=== PATIENT | male | born 1935 | race Caucasian/White ===

== ENCOUNTER 2017-02-19 12:17 | Emergency (ER) | payer OTHER, MEDICARE ==
[2017-02-19 12:30] VITALS: BP 143/87; PULSE 68; RESP 18; TEMP 97.5; O2SAT 94
[2017-02-19] MEDS ORDERED: PROPARACAINE 0.5% 15 ML OPHT DROP ONE (12:33)
[2017-02-19] MEDS ORDERED: PROPARACAINE 0.5% 15 ML OPHT DROP RTEYE ONE (12:36)
--- NOTE | 2017-02-19 12:39 | UCPHY ---
H & P Patient Type: New Chief Complaint Nursing Narrative: swelling. redness to r eye x 4 days. seen by another physician and started on keflex w/o improvement Time Seen by Provider: 02/19/17 12:28 HPI/ROS: Chief Complaint: Right lower eyelid swelling HPI: 82-year-old gentleman presenting with 4 days of swelling to his right lower eyelid. He was seen by his primary care physician's office yesterday and started on oral antibiotics. Patient states that he had irritation overnight. This morning he noted that the lower lid is swollen and things are might be a "pimple" on his lid. Denies any vision changes. There is no discharge from his eye. Has no eye complaints at this time. He has been taking antibiotics. ROS: 10 point Review of Systems is negative except as noted in the HPI. PMH: Denies Medications: Denies Allergies: No known drug allergies Social History: Positive for smoking since he was 13, [no] alcohol, [ no recreational drug use] Family History: [non-contributory] Physical Exam: General: Awake, alert, no acute distress Eyes: There is no conjunctival injection. There is no discharge. He has got a large stye on his lower lid with some mild surrounding erythema and infraorbital erythema. There is an area of pointing fluctuance at the lid margin. - Family History Significant Family History: No pertinent family hx - Social History Smoking Status: Current every day smoker Constitutional: Initial Vital Signs Temperature (C) 36.4 C 02/19/17 12:28 Heart Rate 68 02/19/17 12:28 Respiratory Rate 18 02/19/17 12:28 Blood Pressure 143/87 H 02/19/17 12:28 O2 Sat (%) 94 02/19/17 12:28 O2 Delivery Mode Room Air Allergies/Adverse Reactions: No Known Allergies Allergy (Unverified 02/19/17 12:26) Home Medications: Medication Instructions Recorded Claritin 10 mg 02/19/17 Keflex 02/19/17 Medical Decision Making Procedures: Procedure: Abscess drainage. The patient's abscess was located on the right eyelid. I obtained verbal consent from the patient to drain the abscess who was informed about the possibility of bleeding and pain. The abscess was incised with 21 gauge needle and a moderate amount of purulent drainage was expressed. The patient tolerated the procedure well. The procedure was performed by myself. ED Course/Re-evaluation: 10-year-old male with a large purulent stone in his right lower eyelid. There is no ocular involvement. He has had significant relief with relief of the pressure from incision with an needle. He will continue the antibiotics he is prescribed by his primary care physician. Follow up in their office next week as scheduled. - Data Points Medications Given: Discontinued Medications Proparacaine HCl (Alcaine 0.5%) 1 drops RTEYE ONCE ONE Stop: 02/19/17 12:37 Last Admin: 02/19/17 12:36 Dose: 1 btl Departure - Departure Disposition: Home, Routine, Self-Care Clinical Impression: Sty Condition: Good Instructions: Cam (ED) Additional Instructions: Continue taking her antibiotics. Apply warm soaks with a warm wet washcloth frequently throughout the day. Follow up with your physician next week as scheduled. Return to the emergency department or urgent care for increasing pain, vision changes, or any other concerns. Referrals: Doctor Not,On Staff, MD [Primary Care Provider] - As per Instructions - PQRS PQRS Measurement: 134: Depression screening and followup, PRIME MD-PHQ2 (12 years and older) Over the last 2 weeks, how often have you been bothered by any of the following problems? 1. Feeling down, depressed, or hopeless? 2. Little interest or pleasure in doing things? Patient answered no to both 1 and 2 130: Documentation of medications. Reviewed all patient medications, doses, route and frequency. 226: Do you smoke? Yes, counseled to stop. 47: 65 and older: Advanced care planning. Patient designates surrogate decision maker as . Patient refused. 51: 18 years old and older with diagnosis of COPD, spirometry performance. Patient has no history of COPD 52: 18 years old and older with COPD and symptoms of COPD or FEV1<60% predicted prescribed a B Agonist. Spirometry not performed; equipment not available.
== END 2017-02-19 12:49 | disposition home or self-care (01) ==
LOC: CED 12:17
PROC: 089 Eye, Drainage (ICD-10-PCS; principal; 2017-02-19)
DX: H00.022 Hordeolum internum right lower eyelid (principal)
CPT/HCPCS: 99202-PO; G0463-PO

== ENCOUNTER → 2018-12-27 | Outpatient (CLI) | payer OTHER, MEDICARE | LOC: BHCLAF 14:30 | PROVIDERS: ATTEND Internal Medicine Cardiovascular Disease | DX: I25.10 Atherosclerotic heart disease of native coronary artery without angina pectoris (principal); R01.1 Cardiac murmur, unspecified | CPT/HCPCS: 93005-PO ==

== ENCOUNTER → 2019-01-21 | Outpatient (CLI) | payer OTHER, MEDICARE | LOC: BHCLAF 09:15 | PROVIDERS: ATTEND Internal Medicine Cardiovascular Disease | DX: I25.10 Atherosclerotic heart disease of native coronary artery without angina pectoris (principal); R01.1 Cardiac murmur, unspecified | CPT/HCPCS: 93306-PO ==